=== PATIENT | male | born 2000 | race African-American/Black ===

== ENCOUNTER 2021-01-04 00:18 | Emergency (ER) | payer SELFPAY ==
[~2021-01-04] VITALS: Ht 185.4 cm; Wt 88.6 kg
[2021-01-04 00:25] VITALS: BP 135/97; TEMP 97.6
[2021-01-04] MEDS ORDERED: PREDNISONE20 MG PO (01:00)
[2021-01-04] MEDS ORDERED: PROAIR HFA0.09 MG/AC IH (01:00)
[2021-01-04 01:09] VITALS: PULSE 100
== END 2021-01-04 01:09 | disposition home or self-care (01) ==
LOC: COL.ER 00:18
DX: J45.901 Unspecified asthma with (acute) exacerbation (principal)
CPT/HCPCS: J7512